=== PATIENT | female | born 1970 | race Caucasian/White ===

== ENCOUNTER 2016-07-06 06:53 | Day surgery (SDC) | payer BC, OTHER ==
[~2016-07-06] VITALS: Ht 167.6 cm; Wt 95.9 kg
[2016-07-06 07:09] VITALS: Ht 167.6 cm; Wt 95.9 kg
[2016-07-06 07:30] VITALS: BP 123/86; PULSE 77; RESP 18
[2016-07-06] MEDS ORDERED: OMEP20CA16 PO (07:35)
[2016-07-06] MEDS ORDERED: PROPOFOL 40 ML ONE (07:58)
[2016-07-06] MEDS ORDERED: FENTAnyl 50 MCG/ML VIAL ONE (07:59)
[2016-07-06] MEDS ORDERED: MIDAZOLAM 1 MG/ML 2 ML INJ ONE (07:59)
[2016-07-06] MEDS ORDERED: LIDOCAINE 1% (MPF) 5 ML VIAL ONE (07:59)
[2016-07-06 08:56] VITALS: BP 132/60; PULSE 73; RESP 15
--- NOTE | 2016-07-06 12:15 | GILP ---
DATE OF PROCEDURE: NAME OF PROCEDURES: 1. Esophagogastroduodenoscopy and biopsy. 2. Colonoscopy and biopsy. SURGEON: Onur Burris MD PREOPERATIVE DIAGNOSES: 1. Abdominal pain. 2. Chronic heartburn. 3. History of colon polyps. 4. Family history of colon cancer. POSTOPERATIVE DIAGNOSES: 1. Hiatal hernia. 2. Gastroesophageal reflux disease. 3. Gastritis with erosions. 4. Gastric mucosal biopsies were taken for Helicobacter pylori test. 5. Colonoscopy all the way to the cecum. 6. Small sigmoid colon polyp was removed using the biopsy forceps. 7. Internal hemorrhoids. INDICATION FOR THE PROCEDURE: Ms. Gerri Leija is a 46-year-old female patient who had uppe r abdominal pain and chronic heartburn, not responding to therapy. The patient had history of colon polyps. She has family history of colon cancer, so the patient was scheduled for endoscopy and col onoscopy for further evaluation. The procedures and possible complications are well explained to the patient, she understood and cons ented to the procedures. DESCRIPTION OF PROCEDURE: Under the influence of anesthesia, the gastroscope was carefully introduc ed into the esophagus, and under direct vision, it was advanced to the stomach and through the pylor us into the duodenal bulb and descending duodenum. FINDINGS: ESOPHAGUS: The patient had hiatal hernia and gastroesophageal reflux disease. STOMACH: She had gastritis with erosions. Gastric mucosal biopsies were taken for H pylori test. DUODENUM: Normal. The colonoscope was carefully introduced in the rectum and under direct vision, it was advanced all the way to the cecum. FINDINGS: She had a small sigmoid colon polyp and it was removed using the biopsy forceps. The pat ient was noted to have internal hemorrhoids. She tolerated the procedures very well and there was no complication from the procedures. At the en d of the procedures, she was awake with stable vital signs and she was discharged home to the care o f her family. IMPRESSION: 1. Hiatal hernia. 2. Gastroesophageal reflux disease. 3. Gastritis with erosions. 4. Gastric mucosal biopsies were taken for Helicobacter pylori test. 5. Colonoscopy all the way to the cecum. 6. Small sigmoid colon polyp was removed using the biopsy forceps. 7. Internal hemorrhoids. PLAN: 1. Omeprazole 40 mg p.o. every morning. 2. Zantac 300 mg p.o. at bedtime. 3. Await histopathology reports. 4. Screening colonoscopy in 5 years. Dictated By: ONUR DONAHUE/NANO Conf#: [id number] DID#: [id number]
== END 2016-07-06 09:41 | disposition home or self-care (01) ==
LOC: GIL 06:53
PROVIDERS: ATTEND Internal Medicine Gastroenterology
DX: D12.5 Benign neoplasm of sigmoid colon (principal); K44.9 Diaphragmatic hernia without obstruction or gangrene; K21.9 Gastro-esophageal reflux disease without esophagitis; K64.8 Other hemorrhoids; K29.60 Other gastritis without bleeding; E66.9 Obesity, unspecified; Z68.34 Body mass index [BMI] 34.0-34.9, adult
CPT/HCPCS: 43239; 45380; 87081; 88305; J2250; J3010; Z7610